=== PATIENT | female | born 1935 | race Caucasian/White ===

== ENCOUNTER 2021-10-18 11:23 | Outpatient (CLI) | payer MEDICARE, OTHER | END 2021-10-18 11:24 | disposition home or self-care (01) | LOC: CSHMAMMO 11:23 | PROVIDERS: ATTEND Obstetrics & Gynecology | DX: Z12.31 Encounter for screening mammogram for malignant neoplasm of breast (principal) | CPT/HCPCS: 77063; 77067 ==